=== PATIENT | female | born 1945 | race Caucasian/White ===

== ENCOUNTER 2017-12-24 12:01 | Emergency (ER) | payer MEDICARE ==
[2017-12-24] MEDS: PERCOCET 5MG/325MG TAB PO (12:49)
[2017-12-24 13:13] LABS: BASO % 0.5 % (0.0-1.0); EOS # 0.2 10^3/uL (0.0-0.50); EOS % 3.7 % (0.0-3.0); HEMOGLOBIN 13.5 g/dl (12.0-15.5); IMMATURE GRANULOCYTE % 0.3 % (0-3.0); LYMPH # 1.8 10^3/uL (1.5-4.5); LYMPH % 29.3 % (24.0-44.0); MEAN CORPUSCULAR HEMOGLOBIN 29.5 pg (27.0-33.0); MEAN CORPUSCULAR HGB CONC 32.9 g/dl (32.0-36.5); MEAN CORPUSCULAR VOLUME 89.7 fl (80.0-96.0); MONO # 0.5 10^3/uL (0.0-0.8); NEUTROPHILS # 3.6 10^3/uL (1.8-7.7); NEUTROPHILS % 58.2 % (36.0-66.0); PLATELET COUNT, AUTOMATED 179 10^3/uL (150-450); RED BLOOD COUNT 4.57 10^6/uL (4.00-5.40); RED CELL DISTRIBUTION WIDTH 13.7 % (11.5-14.5); WHITE BLOOD COUNT 6.2 10^3/uL (4.0-10.0)
[2017-12-24 13:25] LABS: KETONE, URINE AUTO RFX 1+ mg/dL (NEGATIVE); LEUKOCYTE ESTERASE UR AUTO RFX NEGATIVE (NEGATIVE); NITRITE, URINE AUTO RFX NEGATIVE (NEGATIVE); RBC, URINE AUTO RFX 3 /HPF (0-3); SPECIFIC GRAVITY UR AUTO RFX 1.008 (1.002-1.035); SQUAM EPITHELIAL CELL UR AURFX 0 /HPF (0-6); WBC, URINE AUTO RFX 0 /HPF (0-3)
[2017-12-24 13:33] LABS: ALBUMIN 4.4 GM/DL (3.2-5.2); ALBUMIN/GLOBULIN RATIO 1.42 (1.00-1.93); ALKALINE PHOSPHATASE 102 U/L (45-117); ALT/SGPT 21 U/L (12-78); ANION GAP 8 MEQ/L (8-16); AST/SGOT 16 U/L (7-37); BILIRUBIN,DIRECT 0.1 MG/DL (0.0-0.2); BILIRUBIN,TOTAL 0.3 MG/DL (0.2-1.0); BLOOD UREA NITROGEN 14 MG/DL (7-18); CALCIUM LEVEL 9.7 MG/DL (8.8-10.2); CARBON DIOXIDE LEVEL 28 MEQ/L (21-32); CHLORIDE LEVEL 106 MEQ/L (98-107); CREATININE FOR GFR 0.84 MG/DL (0.55-1.30); GLOMERULAR FILTRATION RATE > 60.0 (>39); GLUCOSE, FASTING 101 MG/DL (70-100); POTASSIUM SERUM 4.6 MEQ/L (3.5-5.1); SODIUM LEVEL 142 MEQ/L (136-145); TOTAL PROTEIN 7.5 GM/DL (6.4-8.2)
== END 2017-12-24 16:02 | disposition home or self-care (01) ==
LOC: M ED 12:01
DX: N83.202 Unspecified ovarian cyst, left side (principal); M54.9 Dorsalgia, unspecified; G89.29 Other chronic pain; I10 Essential (primary) hypertension; E78.5 Hyperlipidemia, unspecified; R51 Headache; Z86.73 Personal history of transient ischemic attack (TIA), and cerebral infarction without residual deficits
CPT/HCPCS: 76856

== ENCOUNTER 2018-02-11 06:31 | Emergency (ER) | payer MEDICARE ==
[2018-02-11 07:10] LABS: BASO # 0.1 10^3/uL (0.0-0.2); BASO % 0.7 % (0.0-1.0); EOS # 0.3 10^3/uL (0.0-0.50); EOS % 4.1 % (0.0-3.0); HEMATOCRIT 40.5 % (36.0-47.0); HEMOGLOBIN 13.3 g/dl (12.0-15.5); IMMATURE GRANULOCYTE % 0.4 % (0-3.0); LYMPH # 2.2 10^3/uL (1.5-4.5); LYMPH % 29.1 % (24.0-44.0); MEAN CORPUSCULAR HEMOGLOBIN 29.6 pg (27.0-33.0); MEAN CORPUSCULAR HGB CONC 32.8 g/dl (32.0-36.5); MONO # 0.7 10^3/uL (0.0-0.8); MONO % 9.5 % (0.0-5.0); NEUTROPHILS # 4.3 10^3/uL (1.8-7.7); NEUTROPHILS % 56.2 % (36.0-66.0); PLATELET COUNT, AUTOMATED 182 10^3/uL (150-450); RED CELL DISTRIBUTION WIDTH 13.7 % (11.5-14.5); WHITE BLOOD COUNT 7.6 10^3/uL (4.0-10.0)
[2018-02-11] MEDS: NS 500 ML IV (07:15)
[2018-02-11] MEDS: MORPHINE 4 MG/ML 1ML VIAL/SYRINGE (J2270) IV (07:21)
[2018-02-11 07:36] LABS: ALBUMIN 3.9 GM/DL (3.2-5.2); ALBUMIN/GLOBULIN RATIO 1.05 (1.00-1.93); ALKALINE PHOSPHATASE 100 U/L (45-117); ALT/SGPT 21 U/L (12-78); ANION GAP 9 MEQ/L (8-16); AST/SGOT 16 U/L (7-37); BILIRUBIN,DIRECT < 0.1 MG/DL (0.0-0.2); BILIRUBIN,TOTAL 0.4 MG/DL (0.2-1.0); BLOOD UREA NITROGEN 14 MG/DL (7-18); CALCIUM LEVEL 9.3 MG/DL (8.8-10.2); CARBON DIOXIDE LEVEL 27 MEQ/L (21-32); CHLORIDE LEVEL 105 MEQ/L (98-107); CPK CREATINE PHOSPHOKINASE 70 U/L (26-192); CREATININE FOR GFR 0.99 MG/DL (0.55-1.30); GLOMERULAR FILTRATION RATE 58.5 (>39); GLUCOSE, FASTING 103 MG/DL (70-100); LIPASE 285 U/L (73-393); MB/CK RELATIVE INDEX 1.43 (< OR =4); POTASSIUM SERUM 3.9 MEQ/L (3.5-5.1); SODIUM LEVEL 141 MEQ/L (136-145); TOTAL PROTEIN 7.6 GM/DL (6.4-8.2); TROPONIN I < 0.02 NG/ML (< 0.10)
[2018-02-11 07:53] LABS: APPEARANCE, URINE CLEAR (CLEAR); BACTERIA, URINE AUTO NEGATIVE (NEGATIVE); BILIRUBIN, URINE AUTO NEGATIVE (NEGATIVE); BLOOD, URINE BLOOD NEGATIVE (NEGATIVE); COLOR, URINE STRAW (YELLOW); GLUCOSE, URINE (UA) AUTO NEGATIVE (NEGATIVE); KETONE, URINE AUTO NEGATIVE (NEGATIVE); LEUKOCYTE ESTERASE, URINE AUTO NEGATIVE (NEGATIVE); NITRITE, URINE AUTO NEGATIVE (NEGATIVE); PROTEIN, URINE AUTO NEGATIVE (NEGATIVE); RBC, URINE AUTO 1 /HPF (0-3); SPECIFIC GRAVITY URINE AUTO 1.005 (1.002-1.035); SQUAMOUS EPITHELIAL CELL UR AU 1 /HPF (0-6); UROBILINOGEN, URINE AUTO 0.2 mg/dL (0.0-2.0); WBC, URINE AUTO 1 /HPF (0-3)
[2018-02-11 08:08] LABS: LACTIC ACID SEPSIS PROTOCOL 1.2 MMOL/L (0.4-2.0)
[2018-02-11] MEDS: ASPIRIN 325 MG TAB PO (10:57)
[2018-02-11] MEDS: CARVedilol 6.25 MG TAB PO (10:57)
== END 2018-02-11 11:10 | disposition home or self-care (01) ==
LOC: M ED 06:31
DX: M54.5 Low back pain (principal); K86.2 Cyst of pancreas; I71.2 Thoracic aortic aneurysm, without rupture; I71.4 Abdominal aortic aneurysm, without rupture; I10 Essential (primary) hypertension; I25.10 Atherosclerotic heart disease of native coronary artery without angina pectoris; E78.5 Hyperlipidemia, unspecified; Z96.0 Presence of urogenital implants; Z87.442 Personal history of urinary calculi; Z79.899 Other long term (current) drug therapy; Z79.82 Long term (current) use of aspirin
CPT/HCPCS: J2270

== ENCOUNTER 2019-04-05 08:45 | Emergency (ER) | payer MEDICARE ==
[~2019-04-05] VITALS: Ht 152.4 cm; Wt 45.3 kg
[~2019-04-05 08:45] MED LIST: ASPI-255 PO; ASPI81TA85 PO; ASPI81TAEC PO; ATOR1TAB19 PO; ATOR1TAB21 PO; CAPT125TA PO; CARV6.25 PO; CHLO125TA PO; CO Q400C2 PO; K-TA10TA PO; K-TA10TA2 PO; LISI-538 PO; PERC5TAB12 PO; PLAV1TAB2 PO
[2019-04-05] MEDS ORDERED: LISI-542 PO (08:55)
[2019-04-05] MEDS ORDERED: ASPI81TA26 PO (08:55)
[2019-04-05] MEDS ORDERED: TIZA2CAP (08:55)
[2019-04-05 09:51] LABS: BASO # 0.1 10^3/uL (0.0-0.2); BASO % 0.7 % (0.0-1.0); EOS # 0.2 10^3/uL (0.0-0.5); HEMATOCRIT 40.1 % (36.0-47.0); HEMOGLOBIN 12.8 g/dl (12.0-15.5); LYMPH % 26.5 % (24.0-44.0); MEAN CORPUSCULAR HEMOGLOBIN 28.6 pg (27.0-33.0); MEAN CORPUSCULAR HGB CONC 31.9 g/dl (32.0-36.5); MEAN CORPUSCULAR VOLUME 89.7 fl (80.0-96.0); MONO # 0.6 10^3/uL (0.0-0.8); MONO % 7.4 % (0.0-5.0); NEUTROPHILS # 4.7 10^3/uL (1.5-8.5); NEUTROPHILS % 62.1 % (36.0-66.0); PLATELET COUNT, AUTOMATED 171 10^3/uL (150-450); RED BLOOD COUNT 4.47 10^6/uL (4.00-5.40); WHITE BLOOD COUNT 7.6 10^3/uL (4.0-10.0)
[2019-04-05 10:10] LABS: BLOOD UREA NITROGEN 17 MG/DL (7-18); CALCIUM LEVEL 9.1 MG/DL (8.8-10.2); CARBON DIOXIDE LEVEL 25 MEQ/L (21-32); CHLORIDE LEVEL 109 MEQ/L (98-107); CREATININE FOR GFR 0.87 MG/DL (0.55-1.30); GLOMERULAR FILTRATION RATE > 60.0 (>39); GLUCOSE, FASTING 104 MG/DL (70-100); POTASSIUM SERUM 3.9 MEQ/L (3.5-5.1); SODIUM LEVEL 142 MEQ/L (136-145)
--- NOTE | 2019-04-05 11:03 | REP ---
RENAL ULTRASOUND COMPLETE: 04/05/2019. Comparison: Ultrasound 11/04/2015, CT 02/11/2018. Clinical history: Left flank pain, history of left renal atrophy and renal artery stenosis. Findings: Sonographic evaluation of the kidneys shows the right 10.9 x 4.9 x 3 cm. It has normal cortical echogenicity and contour. No definite atrophy. I see no hydronephrosis or hydroureter. There is mild pelviectasis present but no stone or solid mass. A 9 x 9 x 6 mm exophytic cyst is noted off the lower pole. The left kidney is 8.8 x 3.3 x 3.1 cm. It shows normal echogenicity. 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 There is no hydronephrosis or hydroureter. Kidney appears somewhat atrophic. No definite stone, mass or cyst. Evaluation of the bladder is limited but no ureteral jets were observed in the course of this examination. Impression: 1. Right kidney normal in size, cortical thickness and echogenicity without hydronephrosis or hydroureter. There is mild pelviectasis without stone, mass or parapelvic cyst. There is an exophytic 9 x 9 mm cyst lower pole. 2. Left kidney mildly atrophic with some sinus lipomatosis and echogenic vessels in the hilum. No stone, mass, cyst or hydronephrosis. 3. Ureteral jets were not observed on either side. Bladder only partially filled. Electronically Signed by Berry Sidhu MD 04/05/2019 01:21 P
[2019-04-05] MEDS ORDERED: IBUPROFEN 400 MG TAB PO ONE (11:45)
[2019-04-05] MEDS ORDERED: ACETAMINOPHEN TAB 650MG DOSE (2X325MG) PO ONE (11:45)
--- NOTE | 2019-04-05 12:37 | REP ---
LUMBAR SPINE COMPLETE: 04/05/2019. Comparison: CT abdomen and pelvis 02/11/2018 with reconstructions. Clinical history: Low back pain. Findings: Five views are provided. There is a renal artery stent on the right projecting over the L2 vertebral body as seen on previous CT. There is a levoconvex curve lower lumbar spine and disc space narrowing at L4-5 and less at L5-S1. The other disc space heights and all the vertebral bodies are without compression or destructive lesion. Some hypertrophic facet changes at L5-S1. No spondylolysis or spondylolisthesis. The sacral ala and foramina were intact. SI joints symmetric. The aorta has a few scattered calcifications noted, aneurysm cannot be determined on this particular study. Impression: 1. Degenerative disc changes and facet arthritis at L5-S1 with narrowing at L4-5 disc space. No compression fracture or destructive lesions. 2. The L4-5 and L5-S1 disc levels are narrowed with marginal osteophytes. The other disc levels above were intact. 3. A right renal artery stent visible projecting over the L2 vertebral body. Electronically Signed by Berry Sidhu MD 04/05/2019 01:23 P
[2019-04-05] MEDS ORDERED: LIDO5DIS41 TOP (12:52)
[2019-04-05 12:55] VITALS: BP 107/66
== END 2019-04-05 12:59 | disposition home or self-care (01) ==
LOC: M ED 08:45
DX: M54.5 Low back pain (principal); I10 Essential (primary) hypertension; E87.5 Hyperkalemia; Z87.442 Personal history of urinary calculi; Z96.0 Presence of urogenital implants; M51.37 Other intervertebral disc degeneration, lumbosacral region; M46.97 Unspecified inflammatory spondylopathy, lumbosacral region; M25.78 Osteophyte, vertebrae; N28.89 Other specified disorders of kidney and ureter; Z79.82 Long term (current) use of aspirin; Z79.899 Other long term (current) drug therapy

== ENCOUNTER → 2019-12-07 | Outpatient (CLI) | payer MEDICARE ==
[~2019-12-07] MED LIST changes: +ASPI81TA26 PO; -ASPI81TA85 PO; +ASPI81TA86 PO; +LIDO5DIS41 TOP; +LISI-542 PO; +TIZA2CAP; +ZOLO25TA PO
== END ==
LOC: M LABSMTC 12:56
PROVIDERS: ATTEND Anesthesiology
DX: Z01.812 Encounter for preprocedural laboratory examination (principal); Z20.828 Contact with and (suspected) exposure to other viral communicable diseases
CPT/HCPCS: C9803; U0003

== ENCOUNTER 2019-12-12 13:07 | Day surgery (SDC) | payer MEDICARE ==
[~2019-12-12] VITALS: Ht 152.4 cm; Wt 44.8 kg
[2019-12-12] MEDS ORDERED: LIDOCAINE VISCOUS 2% SOLN 15ML UDC As Ordered ONE (13:59)
[2019-12-12] MEDS ORDERED: MIDAZOLAM INJ 2MG/2ML VIAL (J2250 PER 1MG) As Ordered ONE ×2 (13:59→14:00)
[2019-12-12] MEDS: MIDAZOLAM INJ 2MG/2ML VIAL (J2250 PER 1MG) IV PRN ×2 (14:15→14:21)
[2019-12-12] MEDS ORDERED: LIDOCAINE VISCOUS 2% SOLN 15ML UDC SS ONE (14:45)
[2019-12-12] MEDS ORDERED: MIDAZOLAM INJ 2MG/2ML VIAL (J2250 PER 1MG) IV ONE (15:00)
[2019-12-12 15:07] VITALS: BP 122/58
--- NOTE | 2019-12-28 06:51 | T-ECHO ---
DATE: 12/12/2019 REFERRING PHYSICIAN: Kelechi Nicholas M.D. PREPROCEDURE DIAGNOSIS AND INDICATION: Mitral valve prolapse with mitral regurgitation. POST-PROCEDURE DIAGNOSIS: Mitral valve prolapse with mitral regurgitation. PROCEDURE PERFORMED: Transesophageal echocardiogram. PROCEDURE PERFORMED BY: Kelechi Nicholas M.D. JUMBO OPERATOR: None. IV SEDATION: Midazolam 4 mg IV. COMPLICATIONS: None. PROCEDURE DESCRIPTION: Rhythm was sinus. The patient received topical viscus lidocaine to gargle and swallow. She received a total of 4 mg of midazolam IV for conscious sedation. The patient tolerated the procedure well without any immediate complications. Rhythm was sinus. Esophageal intubation was accomplished without difficulty using a Prince 3-dimensional transesophageal echocardiogram probe. The left ventricle was normal in size and systolic function and without regional wall motion abnormalities. The left ventricle wall thickness appeared to be normal. The left ventricle ejection fraction 65% by visual estimate. The right ventricle appeared normal in size and systolic function. The left atrium was enlarged. No masses or thrombi were seen within the atria and their appendages. Pulmonary venous and flow connections to the left atrium were anatomically normal. Pulse-Doppler of the left upper pulmonary vein was without systolic flow reversal. No pericardial effusion. Aortic valve was 3-cuspid and displayed mild focal thickening and calcific deposits. No aortic regurgitation was present. 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 Failure of coaptation due to mitral valve prolapse. A resultant moderately-severe (3+/4) mitral regurgitation was present. 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 Mild- moderate tricuspid regurgitation. Pulmonic valve was normal. Very mild pulmonic regurgitation was present. Distally aortic arch in the descending thoracic aorta showed severe atheroma. CONCLUSIONS: 1. 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 No flail segments or broken chordae. Presence of moderately-severe (3+/4) mitral regurgitation. No systolic flow reversal in the hepatic veins. 2. Severe atheroma involving the distal aortic arch and descending thoracic artery. No mobile components. 3. Mild aortic valve sclerosis of a 3-cuspid aortic valve. No aortic regurgitation. 4. Presence of tricuspid valve prolapse with mild-moderate tricuspid regurgitation. 5. Normal left ventricle size and systolic function. LVF 65% by visual estimate. 6. Left atrial dilatation. MTDD
== END 2019-12-12 15:10 | disposition home or self-care (01) ==
LOC: M OPP 13:07
PROVIDERS: ATTEND Internal Medicine Cardiovascular Disease
DX: I34.1 Nonrheumatic mitral (valve) prolapse (principal); I34.0 Nonrheumatic mitral (valve) insufficiency
CPT/HCPCS: 93312; 93320; 93325; J2250

== ENCOUNTER → 2021-03-11 | Outpatient (CLI) | payer MEDICARE ==
[~2021-03-11] MED LIST changes: +ASPI-569 PO; -ASPI81TAEC PO; -LISI-538 PO; -LISI-542 PO; +LISI-898 PO; +LISI20TA33 PO
== END ==
LOC: M RAD 10:32
PROVIDERS: ATTEND Thoracic Surgery (Cardiothoracic Vascular Surgery)
DX: R91.8 Other nonspecific abnormal finding of lung field (principal); J43.9 Emphysema, unspecified; J84.10 Pulmonary fibrosis, unspecified; I40.0 Infective myocarditis; I25.10 Atherosclerotic heart disease of native coronary artery without angina pectoris; N26.1 Atrophy of kidney (terminal); I71.2 Thoracic aortic aneurysm, without rupture

== ENCOUNTER → 2021-09-29 | Outpatient (CLI) | payer MEDICARE ==
[~2021-09-29] MED LIST changes: -LISI-898 PO; +LISI5TAB11 PO
== END ==
LOC: M PLAIMG 11:34
PROVIDERS: ATTEND Physician Assistant
DX: I71.2 Thoracic aortic aneurysm, without rupture (principal); J84.10 Pulmonary fibrosis, unspecified; R91.1 Solitary pulmonary nodule

== ENCOUNTER → 2021-10-14 | Outpatient (CLI) | payer MEDICARE | LOC: M RAD 07:32 | PROVIDERS: ATTEND Physician Assistant | DX: I71.4 Abdominal aortic aneurysm, without rupture (principal); I70.0 Atherosclerosis of aorta ==

== ENCOUNTER → 2022-02-17 | Outpatient (CLI) | payer MEDICARE ==
[~2022-02-17] MED LIST changes: +CLOP75TA99 PO; -CO Q400C2 PO; +CVS400CA10 PO; -PLAV1TAB2 PO
== END ==
LOC: M RAD 07:56
PROVIDERS: ATTEND Physician Assistant
DX: I71.40 Abdominal aortic aneurysm, without rupture, unspecified (principal)

== ENCOUNTER → 2022-08-13 | Outpatient (CLI) | payer MEDICARE | LOC: M RAD 08:54 | PROVIDERS: ATTEND Physician Assistant | DX: I71.43 Infrarenal abdominal aortic aneurysm, without rupture (principal) ==

== ENCOUNTER → 2022-10-21 | Outpatient (CLI) | payer MEDICARE ==
[~2022-10-21] MED LIST changes: -K-TA10TA PO; -K-TA10TA2 PO; +POTA-164 PO; +POTA-165 PO
== END ==
LOC: M PLAIMG 12:53
PROVIDERS: ATTEND Thoracic Surgery (Cardiothoracic Vascular Surgery)
DX: I71.21 Aneurysm of the ascending aorta, without rupture (principal); J43.9 Emphysema, unspecified

== ENCOUNTER → 2023-02-15 | Outpatient (CLI) | payer MEDICARE | LOC: M RAD 08:17 | PROVIDERS: ATTEND Physician Assistant | DX: I71.40 Abdominal aortic aneurysm, without rupture, unspecified (principal); I70.0 Atherosclerosis of aorta ==

== ENCOUNTER → 2023-09-03 | Outpatient (CLI) | payer MEDICARE | LOC: M PLAIMG 10:05 | PROVIDERS: ATTEND Thoracic Surgery (Cardiothoracic Vascular Surgery) | DX: I71.21 Aneurysm of the ascending aorta, without rupture (principal); N26.1 Atrophy of kidney (terminal) ==

== ENCOUNTER → 2024-01-21 | Outpatient (CLI) | payer MEDICARE | LOC: M RAD 07:50 | PROVIDERS: ATTEND Physician Assistant | DX: I71.43 Infrarenal abdominal aortic aneurysm, without rupture (principal) ==

== ENCOUNTER → 2024-09-19 | Outpatient (CLI) | payer MEDICARE ==
[~2024-09-19] MED LIST changes: +LIDO1ADH93 TOP; -LIDO5DIS41 TOP
== END ==
LOC: M PLAIMG 09:26
PROVIDERS: ATTEND Physician Assistant
DX: I34.0 Nonrheumatic mitral (valve) insufficiency (principal)

== ENCOUNTER → 2024-10-20 | Outpatient (CLI) | payer MEDICARE | LOC: M SLEEP HO 10:01 | PROVIDERS: ATTEND Physician Assistant | DX: R40.0 Somnolence (principal); G47.9 Sleep disorder, unspecified ==

== ENCOUNTER → 2024-11-22 | Outpatient (CLI) | payer MEDICARE ==
[~2024-11-22] MED LIST changes: -CAPT125TA PO; +CAPT1TAB16 PO
== END ==
LOC: M PLAIMG 10:40
PROVIDERS: ATTEND Thoracic Surgery (Cardiothoracic Vascular Surgery)
DX: I71.20 Thoracic aortic aneurysm, without rupture, unspecified (principal); R91.8 Other nonspecific abnormal finding of lung field

== ENCOUNTER → 2024-12-27 | Outpatient (CLI) | payer MEDICARE | LOC: M RAD 13:45 | PROVIDERS: ATTEND Physician Assistant | DX: I71.20 Thoracic aortic aneurysm, without rupture, unspecified (principal); I71.40 Abdominal aortic aneurysm, without rupture, unspecified; K57.30 Diverticulosis of large intestine without perforation or abscess without bleeding; N26.1 Atrophy of kidney (terminal) ==

== ENCOUNTER → 2025-01-23 | Outpatient (CLI) | payer MEDICARE | LOC: M RAD 08:48 | PROVIDERS: ATTEND Physician Assistant | DX: I71.43 Infrarenal abdominal aortic aneurysm, without rupture (principal) ==